=== PATIENT | male | born 1995 | race Two or more races ===

== ENCOUNTER 2025-02-04 18:27 | Emergency (ER) | payer OTHER, MEDICAID ==
[~2025-02-04] VITALS: Ht 190.5 cm; Wt 71.0 kg
[2025-02-04 18:57] VITALS: O2SAT 100
[2025-02-04] MEDS: KETOROLAC 30MG/ML VIAL IM ONE (21:42)
[2025-02-04] MEDS: CYCLOBENZAPRINE 10MG TABLET PO ONE (21:43)
[2025-02-04] MEDS: LIDOCAINE 5% PATCH TOP SCH (21:47)
[2025-02-04 23:07] VITALS: BP 124/75; PULSE 76; RESP 18; TEMP 36.7; O2SAT 99
== END 2025-02-04 23:11 | disposition home or self-care (01) ==
LOC: ER 18:27
DX: S39.012A Strain of muscle, fascia and tendon of lower back, initial encounter (principal); R07.89 Other chest pain; V43.52XA Car driver injured in collision with other type car in traffic accident, initial encounter; Y93.89 Activity, other specified; Y92.89 Other specified places as the place of occurrence of the external cause; Y99.8 Other external cause status
CPT/HCPCS: 71101; 72100; 99284; J1885; Z7610 ×3